=== PATIENT | male | born 1955 | race Caucasian/White ===

== ENCOUNTER 2018-04-27 06:44 | Day surgery (SDC) | payer OTHER ==
[~2018-04-27] VITALS: Ht 175.3 cm; Wt 86.6 kg
[2018-04-27 07:23] VITALS: BP 121/77
[2018-04-27 09:59] VITALS: BP 126/83
== END 2018-04-27 10:25 | disposition home or self-care (01) ==
LOC: GI 06:44 → OR 08:30 → GI 08:30
PROVIDERS: Internal Medicine
PROC: 0DJD8ZZ Inspection of Lower Intestinal Tract, Via Natural or Artificial Opening Endoscopic (ICD-10-PCS; principal; 2018-04-27 08:30)
DX: K57.31 Diverticulosis of large intestine without perforation or abscess with bleeding (principal); E78.5 Hyperlipidemia, unspecified; Z86.010 Personal history of colon polyps; Z79.82 Long term (current) use of aspirin; Z68.28 Body mass index [BMI] 28.0-28.9, adult
CPT/HCPCS: 45378; J1610; J2250; J2310; J3010; J3490

== ENCOUNTER 2019-07-30 11:53 | Emergency (ER) | payer OTHER ==
[~2019-07-30] VITALS: Ht 175.3 cm; Wt 83.9 kg
[2019-07-30 12:29] VITALS: Ht 175.3 cm; Wt 83.9 kg
[2019-07-30 13:52] VITALS: BP 126/80
== END 2019-07-30 13:52 | disposition home or self-care (01) ==
LOC: ED 11:53
DX: S63.502A Unspecified sprain of left wrist, initial encounter (principal); W01.0XXA Fall on same level from slipping, tripping and stumbling without subsequent striking against object, initial encounter; Y93.89 Activity, other specified; Y92.89 Other specified places as the place of occurrence of the external cause; Y99.8 Other external cause status; E78.00 Pure hypercholesterolemia, unspecified; D29.1 Benign neoplasm of prostate
CPT/HCPCS: A4570